=== PATIENT | male | born 1950 | race Caucasian/White ===

== ENCOUNTER → 2016-03-27 | Outpatient (CLI) | payer OTHER ==
--- NOTE | 2016-03-27 16:09 | DX ---
Cervical Spine, Two Views March 27, 2016 Indication: Neck pain. Technique: Upright AP and lateral views Findings: The occiput through T1 is anatomically aligned. Moderate degenerative disk disease is prese nt at C6-C7 and mild degenerative disk disease is present at C4-C5 and C5-C6. Mild productive facet a rthropathy extends from C4-C5 to C7-T1. No compression fracture or bone lesion. Prevertebral soft tis luis armando planes are normal. Impression: Mild/moderate degenerative disk disease worse at the C6-C7 level.
== END ==
LOC: FIMAGING 13:29 → EDSTATUS 13:30
DX: M50.323 Other cervical disc degeneration at C6-C7 level (principal); M46.92 Unspecified inflammatory spondylopathy, cervical region

== ENCOUNTER → 2017-09-23 | Outpatient (CLI) | payer OTHER | LOC: BHFA 13:15 | PROVIDERS: ATTEND Internal Medicine Interventional Cardiology | DX: R06.02 Shortness of breath (principal); R53.83 Other fatigue ==

== ENCOUNTER → 2018-03-03 | Outpatient (CLI) | payer OTHER | LOC: FIMAGING 11:43 | PROVIDERS: ATTEND Family Medicine | DX: M19.041 Primary osteoarthritis, right hand (principal); M19.042 Primary osteoarthritis, left hand ==